=== PATIENT | male | born 1990 | race Caucasian/White ===

== ENCOUNTER 2016-10-06 16:55 | Emergency (ER) | payer OTHER ==
[~2016-10-06] VITALS: Ht 180.3 cm; Wt 72.6 kg
[2016-10-06 17:27] LABS: ABSOLUTE NEUTROPHILS 4.2 thou/uL (1.4-8.2); BASOPHILS 0.4 % (0.0-2.0); EOSINOPHILS 0.9 % (0.0-3.0); HEMATOCRIT 43.6 % (42.0-52.0); HEMOGLOBIN 15.4 gm/dL (14.0-18.0); LYMPHOCYTES 35.5 % (24.0-44.0); MCH 29.9 pg (26.0-34.0); MCHC 35.3 g/dL (28.0-37.0); MCV 84.5 fL (80.0-100.0); MONOCYTES 8.4 % (1.0-8.0); PLATELET COUNT 137 thou/uL (150-400); POLYS 54.8 % (36.0-66.0); RBC 5.16 mil/uL (4.50-6.00); WBC 7.6 thou/uL (4.0-11.0)
[2016-10-06 17:30] LABS: MANUAL DIFF NO
[2016-10-06 17:32] LABS: CALCIUM 9.6 mg/dL (8.5-10.1); CREATININE 0.9 mg/dL (0.6-1.3); POTASSIUM 3.7 mmol/L (3.5-5.1)
[2016-10-06 17:37] LABS: ALBUMIN 4.4 g/dL (3.4-5.0); TOTAL BILIRUBIN 2.3 mg/dL (<0.1-1.0); TOTAL PROTEIN 7.2 g/dL (6.4-8.2)
[2016-10-06] MEDS ORDERED: KEFLEX500 MG PO (19:38)
[2016-10-06] MEDS ORDERED: NORCO 5-325 TA1 EACH PO (19:38)
== END 2016-10-06 20:26 | disposition home or self-care (01) ==
LOC: ER 16:55
PROVIDERS: Emergency Medicine
DX: S61.012A Laceration without foreign body of left thumb without damage to nail, initial encounter (principal); W22.09XA Striking against other stationary object, initial encounter; Y93.89 Activity, other specified; Y92.89 Other specified places as the place of occurrence of the external cause; Y99.9 Unspecified external cause status